=== PATIENT | female | born 1970 | race Caucasian/White ===

== ENCOUNTER → 2018-03-15 11:26 | Outpatient (CLI) | payer MEDICAID, SELFPAY | PROVIDERS: PCP Physician Assistant; Visit Provider Physician Assistant | DX: R19.4 Change in bowel habit (principal); L29.0 Pruritus ani | CPT/HCPCS: 87045; 87177 ==

== ENCOUNTER → 2018-07-06 10:40 | Outpatient (CLI) | payer MEDICAID, SELFPAY | PROVIDERS: PCP Physician Assistant; Visit Provider Orthopaedic Surgery Adult Reconstructive Orthopaedic Surgery | DX: M25.511 Pain in right shoulder (principal) ==

== ENCOUNTER 2020-01-11 14:35 | Emergency (ER) | payer MEDICAID, SELFPAY ==
[2020-01-11 15:02] VITALS: BP 128/70; PULSE 71; RESP 21; TEMP 36.8; O2SAT 98; BMI 34.2
--- NOTE | 2020-01-11 15:16 | HMH.EDUTC ---
[facility] [place] Impression: Folliculitis Disposition: Home, Self-Care Condition on Discharge: Good Instructions: DI for Folliculitis, Folliculitis Additional Instructions: Take the medications as directed. Follow up with your primary care doctor. GO TO THE ER FOR ANY WORSENING SYMPTOMS OR CONCERNS Prescriptions: Mupirocin [Bactroban 2% Ointment 22gm tube] 1 applicatio TP TID 7 Days #1 tube [facility]: [id number] cephALEXin [Keflex 500mg Cap] 500 mg PO Q6H 10 Days #40 cap Transmission Status: [id number] Referrals: Adam Bocanegra [Primary Care Provider] - Time of Disposition: 15:23 Medical Decision Making - Medical Records Medical records reviewed: No: I reviewed the patient's medical records. - Peter Inquiry Pt receiving controlled substance: No Vital Signs: 01/11/20 15:02 Temperature 98.2 F Temperature Source Oral Pulse Rate [Right Brachial] 71 Respiratory Rate 21 Blood Pressure [Right Arm] 128/70 Blood Pressure Mean [Right Arm] 89 Blood Pressure Source [Right Arm] Automatic Cuff Blood Pressure Position [Right Arm] Sitting 02 Sat by Pulse Oximetry 98 Oxygen Delivery Method Room Air [facility] [place] - General Stated complaint: rash on stomach Time Seen by Provider: 01/11/20 15:16 Mode of Arrival: Ambulatory Source of Information: Patient Limitations: No Limitations Description of Symptoms (Recalled from Triage Doc. by RN): PATIENT C/O RASH TO ABD AND UNDER RIGHT BREAST X 4 DAYS HEENT Symptoms (Recalled from RN notes): No Resp Symptoms (Recalled from RN notes): No Skin Symptoms (Recalled from RN notes): Yes MS Symptoms (Recalled from RN notes): No Functional Status (Recalled from RN notes): WNL - History of Present Illness Provider Complaint: She c/o having a rash on her abdomen that goes up to beneath her right breast. She denies feeling bad. She denies any fever or chills. - Related Data Home Medications Medication Instructions Recorded Confirmed Cetirizine HCl [Zyrtec] 10 mg PO DAILY 01/11/20 01/11/20 Citalopram Hydrobromide [Celexa] 20 mg PO BID 01/11/20 01/11/20 Metoprolol Succinate [Metoprolol 25 mg PO DAILY 01/11/20 01/11/20 Succinate 25mg Tablet*] Pantoprazole Sodium [Protonix 40mg 40 mg PO HS 01/11/20 01/11/20 tablet] Previous Rx's Medication Instructions Recorded Mupirocin [Bactroban 2% Ointment 1 applicatio TP TID 7 Days #1 tube 01/11/20 22gm tube] cephALEXin [Keflex 500mg Cap] 500 mg PO Q6H 10 Days #40 cap 01/11/20 Allergies Allergy/AdvReac Type Severity Reaction Status Date / Time No Known Allergies Allergy Verified 01/11/20 15:11 - Worker's Comp Is this a Worker's Comp case?: No [facility] [place] History - Hepatitis A Screen Drug use history?: No High risk sexual behaviors?: No History of sexually transmitted infection?: No Currently employed?: No Childcare worker?: No Do you have indoor plumbing?: Yes Do you have electricity?: Yes Attestation statement:: This patient has been screened for Hepatitis A risk factors. I have reviewed the patient's past medical history: Yes - Social History Alcohol Intake: never Occupational Status: other ROS Obtained: Yes All systems reviewed & no additional complaints - Constitutional Constitutional: Denies chills, Denies fever(s) - Eyes Eyes: Denies eye discharge - ENT Ears, Nose, Mouth, and Throat: Denies dizziness, Denies otalgia, Denies sore throat - Respiratory Respiratory: No chest congestion, No cough, No dyspnea, No wheezing - Musculoskeletal Musculoskeletal: Denies joint pain - Integumentary/Breasts Skin/Breast: Reports as per HPI Physical Exam - General General appearance: alert, in no apparent distress - Head Head exam: atraumatic, normocephalic, normal inspection - Eye Eye exam: Present: normal appearance, PERRL, EOMI - ENT ENT exam: Present: normal exam, normal oropharynx, mucous memb
[2020-01-11 15:32] VITALS: BP 128/70; PULSE 71; RESP 21; TEMP 36.8; O2SAT 98
== END 2020-01-11 15:33 | disposition home or self-care (01) ==
PROVIDERS: Emergency Provider Nurse Practitioner Family; PCP Family Medicine
DX: L73.9 Follicular disorder, unspecified (principal)
CPT/HCPCS: 99201

== ENCOUNTER 2020-12-09 17:10 | Emergency (ER) | payer MEDICAID, SELFPAY ==
[2020-12-09 17:10] VITALS: BP 117/77; PULSE 89; RESP 18; TEMP 37.7; O2SAT 97; BMI 34.2
[2020-12-09 17:33] VITALS: BP 109/62; PULSE 90; RESP 19; O2SAT 93
--- NOTE | 2020-12-09 17:36 | XR_ITS ---
PROCEDURE INFORMATION: Exam: XR Chest Exam date and time: 12/09/2020 5:36 PM Age: 50 years old Clinical indication: Condition or disease; Other: Positive for covid 19; Prior surgery; Surgery date: 6+ months; Surgery type: Diagnostic heart cath; Patient HX: Covid positive. ; Additional info: +covid TECHNIQUE: Imaging protocol: XR of the chest. Views: 2 views. Total images: 2 COMPARISON: No relevant prior studies available. FINDINGS: Lungs: Low lung volumes. Pulmonary vasculature grossly normal. Mild alveolar densities in the central right base and right perihilar region consistent with pneumonia or atelectasis. Pleural spaces: No pleural effusion. No pneumothorax. Heart/Mediastinum: Heart size normal. No tracheal/mediastinal shift. Bones/joints: No acute osseous abnormalities are identified. IMPRESSION: Pneumonia or atelectasis in the right basilar/perihilar distributions.
[2020-12-09 17:47] LABS: Alanine Aminotransferase 20 U/L (12-78); Albumin/Globulin Ratio 1.2 (1.1-1.8); Alkaline Phosphatase 70 U/L (38-126); Anion Gap 14.5 mEq/L (5-15); Aspartate Amino Transferase 29 U/L (14-36); Bilirubin,Total 0.3 mg/dl (0.2-1.3); Blood Urea Nitrogen 6 mg/dl (7-17); Calcium 8.2 mg/dl (8.4-10.2); Carbon Dioxide 25 mmol/L (22.0-30.0); Chloride 108 mmol/L (98-107); Creatinine Clearance Estimated 104 mL/min (50-200); Estimated Glomerular Filt Rate 76 ml/min (>60); GFR (African American) 92 ML/MIN (>60); Globulin 3.4 g/dL (1.3-3.2); Glucose 105 mg/dl (74-100); Potassium 3.5 mmoL/L (3.5-5.1); Sodium 144 mmol/L (136-145); Total Protein,Serum 7.4 g/dl (6.3-8.2)
[2020-12-09 17:56] LABS: Basophils % 0.1 % (0.1-2.0); Eosinophils % 0.3 % (0.1-12.0); Hematocrit 38.4 % (37.0-47.0); Hemoglobin 12.5 g/dL (12.2-16.2); Lymphocytes # 0.6 K/mm3 (0.7-4.5); Lymphocytes % 13.4 % (10-50); Mean Corpuscular HGB Conc 32.5 g/dL (31.8-35.4); Mean Corpuscular Hemoglobin 27.8 pg (27.0-31.2); Mean Corpuscular Volume 85.5 fl (81-99); Mean Platelet Volume 7.8 fl (7.4-10.4); Monocytes # 0.2 K/mm3 (0.1-1.0); Monocytes % 5.1 % (1.7-9.3); Neutrophils # 3.6 K/mm3 (1.8-7.8); Neutrophils % 81.2 % (37.0-80.0); Platelet Count 273 K/mm3 (142-424); Red Blood Count 4.49 M/mm3 (4.20-5.40); Red Cell Distribution Width 14.8 % (11.5-17.5); White Blood Count 4.4 K/mm3 (4.8-10.8)
[2020-12-09 18:00] VITALS: BP 120/102; PULSE 80; RESP 12; O2SAT 91
--- NOTE | 2020-12-09 19:17 | HMH.EDGENADL ---
ED Disposition Clinical Impression: COVID-19 virus infection Disposition: Home, Self-Care Condition on Discharge: Good Instructions: DI for COVID-19 (Suspected or Confirmed ) Additional Instructions: Zofran as needed for nausea. Drink plenty of fluids. Tylenol or ibuprofen for fever or pain. Outpatient infusion of monoclonal antibodies has been ordered. You will receive a phone call to schedule. Return to the emergency department if severe shortness of breath, intractable vomiting, severe weakness. Referrals: Aidee Polo APRN [Primary Care Provider] - - Critical Care Critical Care Time: No Attestation: On 12/09/20, the high probability of a clinically significant, sudden or life threatening deterioration of the following system(s) required my full and direct attention, intervention and personal management. The time I documented below is in addition to time spent performing reported procedures but includes the following listed in this critical care notation. Medical Decision Making - Peter Inquiry Pt receiving controlled substance: Yes Peter was queried for this patient: No Reason not queried -: Peter login issues Risks and benefits of using a controlled substance: were discussed with pt by me Vital Signs: 12/09/20 17:10 12/09/20 17:33 12/09/20 18:00 Temperature 99.9 F H Temperature Source Oral Pulse Rate 90 80 Pulse Rate [Right] 89 Respiratory Rate 18 19 12 Blood Pressure 109/62 L 120/102 H Blood Pressure [Right Arm] 117/77 Blood Pressure Mean [Right Arm] 90 02 Sat by Pulse Oximetry 97 93 L 91 L Oxygen Delivery Method Room Air - Lab Data Lab Results 12/09/20 17:25: WBC 4.4 L, RBC 4.49, Hgb 12.5, Hct 38.4, MCV 85.5, MCH 27.8, MCHC 32.5, RDW 14.8, Plt Count 273, MPV 7.8, Neut % (Auto) 81.2 H, Lymph % (Auto) 13.4, Towner % (Auto) 5.1, Eos % (Auto) 0.3, Baso % (Auto) 0.1, Neut # (Auto) 3.6, Lymph # (Auto) 0.6 L, Towner # (Auto) 0.2, Eos # (Auto) 0.0, Baso # (Auto) 0.0 12/09/20 17:25: Sodium 144, Potassium 3.5, Chloride 108 H, Carbon Dioxide 25, Anion Gap 14.5, BUN 6 L, Creatinine 0.80, Estimated Creat Clear 104, Estimated GFR 76, Est GFR ( Amer) 92, Glucose 105 H, Calcium 8.2 L, Total Bilirubin 0.3, AST 29, ALT 20, Alkaline Phosphatase 70, Total Protein 7.4, Albumin 4.0, Globulin 3.4 H, Albumin/Globulin Ratio 1.2 Result diagrams: 12/09/20 17:25 12/09/20 17:25 Orders (Tests/Meds): ED MEDICATIONS Discontinued Medications Generic Name Dose Route Start Last Admin Trade Name Freq PRN Reason Stop Dose Admin Alprazolam 0.5 mg 12/09/20 19:33 Alprazolam 0.5mg Tablet PO 12/09/20 19:34 ONCE ONE Ondansetron HCl 4 mg 12/09/20 19:33 Ondansetron 4mg/2ml Vial IV 12/09/20 19:34 ONCE ONE Sodium Chloride 1,000 ml 12/09/20 19:33 Sodium Chloride 0.9% 1000ml Bag IV 12/09/20 19:34 BOLUS ONE General Adult HPI - General Chief complaint: Fever Stated complaint: Covid / fever,weakness Time Seen by Provider: 12/09/20 19:19 Mode of Arrival: Ambulatory Limitations: No Limitations Description of Symptoms (Recalled from ER Triage Doc. by RN): tested + for COVID last monday, c/o fevers, chills & diarrhea. tmax 101.6, last took ibuprofen at 1500 today. denies SOB/CP. - History of Present Illness HPI narrative: She has COVID-19. Developed symptoms 8 days ago and tested positive on that date at another facility. No treatment as of yet. She says that she ate at a [place] restaurant with 2 friends and all 3 of them develop symptoms the next day. She says she is prediabetic. She has anxiety and is requesting medication for anxiety. She currently takes hydroxyzine. She has mild asthma. Denies shortness of breath. Very little cough. She has had some diarrhea. Her main concern is that she may have become dehydrated. She says she is not able to eat and drink enough to produce much urine output. She is not vomiting. She thought she mi
[2020-12-09 21:14] VITALS: BP 106/68; PULSE 75; RESP 16; TEMP 37.1; O2SAT 96
== END 2020-12-09 21:23 | disposition home or self-care (01) ==
PROVIDERS: Emergency Provider Emergency Medicine; PCP Nurse Practitioner Family
DX: U07.1 COVID-19 (principal); R50.9 Fever, unspecified; R53.1 Weakness; F41.9 Anxiety disorder, unspecified
CPT/HCPCS: 71046; 80053; 85025; 96365; 96375; 99283; J2405

== ENCOUNTER 2020-12-10 10:17 | Outpatient (CLI) | payer MEDICAID, SELFPAY ==
[2020-12-10] VITALS (8 sets, daily range): BP systolic 93–105; BP diastolic 54–63; PULSE 64–78; RESP 16–18; TEMP 36.6; O2SAT 94–100; BMI 34.2
== END 2020-12-10 12:57 | disposition home or self-care (01) ==
LOC: INF 10:18
PROVIDERS: PCP Nurse Practitioner Family; Visit Provider Emergency Medicine
DX: U07.1 COVID-19 (principal)
CPT/HCPCS: 96365

== ENCOUNTER 2020-12-11 14:02 | Emergency (ER) | payer MEDICAID, SELFPAY ==
[2020-12-11 14:03] VITALS: BP 119/69; PULSE 79; RESP 16; TEMP 36.8; O2SAT 94; BMI 34.2
--- NOTE | 2020-12-11 14:32 | XR_ITS ---
PROCEDURE: XR CHEST PORTABLE CLINICAL HISTORY: COVID Shortness of air and cough COMPARISON: CR XR CHEST 2V from 12/09/2020 FINDINGS: The cardiomediastinal silhouette and pulmonary vascularity are within normal limits. There are low lung volumes vascular crowding. No definite infiltrate apparent. No effusions. No acute bony abnormalities. IMPRESSION: No acute findings. Dictated by: Julio C Dean MD 12/11/2020 15:00 Julio C Dean MD in [facility] 12/11/2020 15:00
--- NOTE | 2020-12-11 14:46 | PC.NURSE ---
xray in room at this time
--- NOTE | 2020-12-11 14:55 | HMH.EDGENADL ---
ED Disposition Clinical Impression: Anxiety, COVID-19 virus infection Disposition: Home, Self-Care Condition on Discharge: Good Instructions: Anxiety Disorders Additional Instructions: Take medications as directed. Follow-up with PCP on Monday. Return to the emergency department chest pain, shortness of breath, fever. Referrals: Aidee Polo APRN [Primary Care Provider] - Time of Disposition: 15:00 - Critical Care Critical Care Time: No Attestation: On 12/11/20, the high probability of a clinically significant, sudden or life threatening deterioration of the following system(s) required my full and direct attention, intervention and personal management. The time I documented below is in addition to time spent performing reported procedures but includes the following listed in this critical care notation. Medical Decision Making - Medical Records Medical records reviewed: Yes: I reviewed the patient's medical records. - Peter Inquiry Pt receiving controlled substance: No Vital Signs: 12/11/20 14:03 Temperature 98.3 F Temperature Source Oral Pulse Rate [Right] 79 Respiratory Rate 16 Blood Pressure [Right Arm] 119/69 Blood Pressure Mean [Right Arm] 85 Blood Pressure Source [Right Arm] Automatic Cuff 02 Sat by Pulse Oximetry 94 L Oxygen Delivery Method Room Air Orders (Tests/Meds): ORDERS Category Date Time Status CXR --portable [XR chest portable] Stat Exams 12/11/20 14:32 Taken - Radiology Data #1 Image(s): Chest Image Reviewed: Yes I reviewed the patient's radiology image Preliminary Findings: Normal/NAD Medical Decision Narrative: 50yo F evaluated for anxiety. Patient also has known Covid. Vital signs are completely unremarkable. Her physical exam is benign. Patient states the reason for anxiety is that her mother when the patient was very young and she had to go in and out of the hospital several times. Patient is now concerning time that she is sick she may . Discussed patient's current vital signs and her physical exam findings are benign. Chest x-ray is unremarkable. Treated the patient with hydroxyzine and discharged her home. Encouraged her to follow-up with PCP on Monday continue taking medications as directed. General Adult HPI - General Chief complaint: Nausea/Vomiting/Diarrhea Stated complaint: covid +, vomiting, weakness Time Seen by Provider: 12/11/20 14:56 Mode of Arrival: Ambulatory Limitations: No Limitations Description of Symptoms (Recalled from ER Triage Doc. by RN): patient COVID+ 12/03/2020. RegenCOV infusion 12/10/2020. patient states that she has vomited 3 times today and that she is scared because she has covid. - History of Present Illness HPI narrative: 50yo F presents the emergency department secondary to anxiety. Patient has Covid and tested positive last . She developed symptoms last Monday. She denies any fever or shortness of breath. She states she does feels tired. She is eating and drinking. Denies any chest pain. Patient reports she takes Pristiq and hydroxyzine for anxiety. - Related Data Home Medications Medication Instructions Recorded Confirmed Cetirizine HCl [Zyrtec] 10 mg PO DAILY 01/11/20 01/11/20 Citalopram Hydrobromide [Celexa] 20 mg PO BID 01/11/20 01/11/20 Metoprolol Succinate [Metoprolol 25 mg PO DAILY 01/11/20 01/11/20 Succinate 25mg Tablet*] Pantoprazole Sodium [Protonix 40mg 40 mg PO HS 01/11/20 01/11/20 tablet] Previous Rx's Medication Instructions Recorded Mupirocin [Bactroban 2% Ointment 1 applicatio TP TID 7 Days #1 tube 01/11/20 22gm tube] cephALEXin [Keflex 500mg Cap] 500 mg PO Q6H 10 Days #40 cap 01/11/20 Allergies Allergy/AdvReac Type Severity Reaction Status Date / Time No Known Allergies Allergy Verified 01/11/20 15:11 [facility] History - Hepatitis A Screen Drug use history?: No High risk sexual behaviors?: No History of sexually transmitte
[2020-12-11 15:07] VITALS: BP 100/72; PULSE 77; RESP 18; TEMP 36.7; O2SAT 95
== END 2020-12-11 15:09 | disposition home or self-care (01) ==
PROVIDERS: Emergency Provider Family Medicine; PCP Nurse Practitioner Family
DX: U07.1 COVID-19 (principal); F41.9 Anxiety disorder, unspecified
CPT/HCPCS: 71045; 96374; 99282; J2405

== ENCOUNTER → 2022-01-12 08:30 | Outpatient (CLI) | payer MEDICAID, SELFPAY ==
[2022-01-12 18:37] LABS: Basophils # 0.1 K/mm3 (0-0.2); Basophils % 0.8 % (0.1-2.0); Eosinophils # 0.4 K/mm3 (0.0-0.4); Eosinophils % 4.9 % (0.1-12.0); Hematocrit 40.3 % (37.0-47.0); Hemoglobin 12.8 g/dL (12.2-16.2); Lymphocytes # 1.6 K/mm3 (0.7-4.5); Lymphocytes % 23.1 % (10-50); Mean Corpuscular HGB Conc 31.8 g/dL (31.8-35.4); Mean Corpuscular Hemoglobin 27.4 pg (27.0-31.2); Mean Corpuscular Volume 86.3 fl (81-99); Mean Platelet Volume 9.4 fl (7.4-10.4); Monocytes # 0.4 K/mm3 (0.1-1.0); Monocytes % 5.2 % (1.7-9.3); Neutrophils # 4.7 K/mm3 (1.8-7.8); Neutrophils % 66.1 % (37.0-80.0); Platelet Count 425 K/mm3 (142-424); Red Blood Count 4.67 M/mm3 (4.20-5.40); Red Cell Distribution Width 14.4 % (11.5-17.5); White Blood Count 7.1 K/mm3 (4.8-10.8)
[2022-01-12 18:56] LABS: Alanine Aminotransferase 21 U/L (12-78); Albumin/Globulin Ratio 1.4 (1.1-1.8); Alkaline Phosphatase 96 U/L (38-126); Anion Gap 14.2 mEq/L (5-15); Aspartate Amino Transferase 23 U/L (14-36); Bilirubin,Total 0.2 mg/dl (0.2-1.3); Blood Urea Nitrogen 11 mg/dl (7-17); Calcium 8.7 mg/dl (8.4-10.2); Carbon Dioxide 25 mmol/L (22.0-30.0); Chloride 106 mmol/L (98-107); Chol/HDL Ratio 4.5 (1-3.5); Cholesterol 166 mg/dl (140-200); Estimated Glomerular Filt Rate 75 ml/min (>60); GFR (African American) 91 ML/MIN (>60); Globulin 2.9 g/dL (1.3-3.2); Glucose 95 mg/dl (74-100); HDL Cholesterol 37 mg/dl (40-60); Potassium 4.2 mmoL/L (3.5-5.1); Sodium 141 mmol/L (136-145); Total Protein,Serum 6.9 g/dl (6.3-8.2); Triglycerides 136 mg/dl (30-150); VLDL Cholesterol 27 mg/dL (0-40)
[2022-01-12 19:07] LABS: Direct LDL Cholesterol 105.03 mg/dL (100-129)
[2022-01-12 19:09] LABS: 25-OH Vitamin D, Total 37.1 ng/mL (30-100)
[2022-01-12 19:28] LABS: Thyroid Stimulating Hormone 2.06 uIU/mL (0.465-4.68)
[2022-01-12 19:47] LABS: Hemoglobin A1C 5.7 % (4.0-6.0)
== END ==
PROVIDERS: PCP Family Medicine; Visit Provider Family Medicine
DX: I10 Essential (primary) hypertension (principal); R73.03 Prediabetes; E55.9 Vitamin D deficiency, unspecified; E78.5 Hyperlipidemia, unspecified
CPT/HCPCS: 80053; 80061; 82306; 83036; 84443; 85025

== ENCOUNTER → 2022-02-03 15:20 | Outpatient (CLI) | payer MEDICAID, SELFPAY ==
[2022-02-03 21:07] LABS: Basophils # 0.1 K/mm3 (0-0.2); Basophils % 0.6 % (0.1-2.0); Eosinophils # 0.3 K/mm3 (0.0-0.4); Eosinophils % 3.4 % (0.1-12.0); Hematocrit 38.1 % (37.0-47.0); Hemoglobin 12.8 g/dL (12.2-16.2); Lymphocytes # 1.8 K/mm3 (0.7-4.5); Lymphocytes % 21.6 % (10-50); Mean Corpuscular HGB Conc 33.7 g/dL (31.8-35.4); Mean Corpuscular Hemoglobin 28.5 pg (27.0-31.2); Mean Corpuscular Volume 84.5 fl (81-99); Monocytes # 0.5 K/mm3 (0.1-1.0); Monocytes % 5.4 % (1.7-9.3); Neutrophils # 5.7 K/mm3 (1.8-7.8); Neutrophils % 69.1 % (37.0-80.0); Platelet Count 476 K/mm3 (142-424); Red Blood Count 4.51 M/mm3 (4.20-5.40); Red Cell Distribution Width 14.6 % (11.5-17.5); White Blood Count 8.3 K/mm3 (4.8-10.8)
[2022-02-05 08:18] LABS: FSH 5.4 mIU/mL (.)
== END ==
PROVIDERS: PCP Family Medicine; Visit Provider Family Medicine
DX: N95.0 Postmenopausal bleeding (principal); R10.9 Unspecified abdominal pain
CPT/HCPCS: 83001; 85025

== ENCOUNTER → 2022-02-07 08:25 | Outpatient (CLI) | payer MEDICAID, SELFPAY ==
--- NOTE | 2022-02-07 08:30 | US_ITS ---
FINAL REPORT CLINICAL HISTORY: abdominal pain LUQ FINDINGS: Sonographic images of the abdomen were obtained. There is fatty infiltration of the liver. There is an echogenic nonshadowing focus in the gallbladder consistent with a polyp. There is no evidence of biliary ductal dilatation. The common hepatic duct measures 3 mm, which is within normal limits. The pancreas is partially obscured. The spleen size is normal. The right kidney measures 10.2 in length. The left kidney measures 11.4 in length. There is normal renal echogenicity. There is no evidence of hydronephrosis. The aorta has an unremarkable appearance. Limited images of the inferior vena cava are unremarkable. IMPRESSION: Fatty liver. Polyp in the gallbladder. Reviewed, Interpreted and Dictated by Azam Garsia III, MD Transcribed by Kerrie Berman Authenticated and [facility]
== END ==
PROVIDERS: PCP Family Medicine; Visit Provider Family Medicine
DX: R10.9 Unspecified abdominal pain (principal)
CPT/HCPCS: 76700

== ENCOUNTER → 2023-03-02 23:34 | Outpatient (CLI) | payer MEDICAID, SELFPAY ==
[2023-03-02 17:30] LABS: Basophils % 0.4 % (0.1-2.0); Eosinophils # 0.4 K/mm3 (0.0-0.4); Eosinophils % 5.5 % (0.1-12.0); Hematocrit 40.3 % (37.0-47.0); Hemoglobin 13.8 g/dL (12.2-16.2); Lymphocytes # 1.4 K/mm3 (0.7-4.5); Lymphocytes % 21.3 % (10-50); Mean Corpuscular HGB Conc 34.2 g/dL (31.8-35.4); Mean Corpuscular Hemoglobin 29.5 pg (27.0-31.2); Mean Corpuscular Volume 86.3 fl (81-99); Mean Platelet Volume 9.2 fl (7.4-10.4); Monocytes # 0.3 K/mm3 (0.1-1.0); Monocytes % 5.2 % (1.7-9.3); Neutrophils # 4.3 K/mm3 (1.8-7.8); Neutrophils % 67.5 % (37.0-80.0); Platelet Count 368 K/mm3 (142-424); Red Blood Count 4.67 M/mm3 (4.20-5.40); Red Cell Distribution Width 14.6 % (11.5-17.5); White Blood Count 6.4 K/mm3 (4.8-10.8)
[2023-03-02 19:10] LABS: Chloride 106 mmol/L (98-107); Potassium 4.1 mmoL/L (3.5-5.1); Sodium 140 mmol/L (136-145)
[2023-03-02 19:13] LABS: Anion Gap 15.1 mEq/L (5-15); Blood Urea Nitrogen 9 mg/dl (7-17); Carbon Dioxide 23 mmol/L (22.0-30.0); Estimated Glomerular Filt Rate 105 ml/min (>60); GFR (African American) 127 ML/MIN (>60)
[2023-03-02 19:14] LABS: Calcium 8.9 mg/dl (8.4-10.2); Glucose 105 mg/dl (74-100)
[2023-03-02 19:43] LABS: Thyroid Stimulating Hormone 4.49 uIU/mL (0.465-4.68)
[2023-03-02 20:06] LABS: Alanine Aminotransferase 39 U/L (12-78); Albumin Level 4.6 g/dl (3.5-5.0); Albumin/Globulin Ratio 1.6 (1.1-1.8); Aspartate Amino Transferase 36 U/L (14-36); Cholesterol 245 mg/dl (140-200); Globulin 2.9 g/dL (1.3-3.2); Total Protein,Serum 7.5 g/dl (6.3-8.2); Triglycerides 284 mg/dl (30-150); VLDL Cholesterol 57 mg/dL (0-40)
[2023-03-02 20:07] LABS: Chol/HDL Ratio 7.9 (1-3.5); HDL Cholesterol 31 mg/dl (40-60)
[2023-03-02 20:18] LABS: Direct LDL Cholesterol 167.39 mg/dL (100-129)
[2023-03-02 20:42] LABS: Bilirubin,Total 0.6 mg/dl (0.2-1.3)
[2023-03-02 21:43] LABS: Alkaline Phosphatase 105 U/L (38-126)
== END ==
LOC: LAB.DROPOF 23:35
PROVIDERS: PCP Family Medicine; Visit Provider Family Medicine
DX: E03.9 Hypothyroidism, unspecified (principal)
CPT/HCPCS: 80053; 80061; 83036; 84443; 85025

== ENCOUNTER 2023-06-13 20:22 | Outpatient (CLI) | payer MEDICAID, SELFPAY | END 2023-06-13 23:59 | LOC: LAB.DROPOF 20:22 | PROVIDERS: PCP Nurse Practitioner Family; Visit Provider Nurse Practitioner Family | DX: R09.81 Nasal congestion (principal); R06.02 Shortness of breath; R50.9 Fever, unspecified | CPT/HCPCS: 87635 ==

== ENCOUNTER 2023-07-31 11:33 | Outpatient (CLI) | payer MEDICAID, SELFPAY ==
[2023-07-31 16:38] LABS: Basophils % 0.5 % (0.1-2.0); Eosinophils # 0.3 K/mm3 (0.0-0.4); Eosinophils % 3.6 % (0.1-12.0); Hematocrit 40.7 % (37.0-47.0); Hemoglobin 12.9 g/dL (12.2-16.2); Lymphocytes # 2.1 K/mm3 (0.7-4.5); Lymphocytes % 26.3 % (10-50); Mean Corpuscular HGB Conc 31.8 g/dL (31.8-35.4); Mean Corpuscular Hemoglobin 28.5 pg (27.0-31.2); Mean Corpuscular Volume 89.5 fl (81-99); Mean Platelet Volume 9.5 fl (7.4-10.4); Monocytes # 0.5 K/mm3 (0.1-1.0); Monocytes % 5.6 % (1.7-9.3); Neutrophils # 5.2 K/mm3 (1.8-7.8); Platelet Count 377 K/mm3 (142-424); Red Blood Count 4.54 M/mm3 (4.20-5.40); Red Cell Distribution Width 14.8 % (11.5-17.5); White Blood Count 8.2 K/mm3 (4.8-10.8)
[2023-07-31 17:10] LABS: Alanine Aminotransferase 28 U/L (12-78); Albumin Level 4.3 g/dl (3.5-5.0); Albumin/Globulin Ratio 1.4 (1.1-1.8); Alkaline Phosphatase 104 U/L (38-126); Aspartate Amino Transferase 31 U/L (14-36); Bilirubin,Total 0.5 mg/dl (0.2-1.3); Blood Urea Nitrogen 10 mg/dl (7-17); Calcium 9.2 mg/dl (8.4-10.2); Carbon Dioxide 26 mmol/L (22.0-30.0); Chloride 107 mmol/L (98-107); Chol/HDL Ratio 6.1 (1-3.5); Cholesterol 239 mg/dl (140-200); Estimated Glomerular Filt Rate 105 ml/min (>60); GFR (African American) 127 ML/MIN (>60); Glucose 99 mg/dl (74-100); HDL Cholesterol 39 mg/dl (40-60); Sodium 141 mmol/L (136-145); Total Protein,Serum 7.3 g/dl (6.3-8.2); Triglycerides 274 mg/dl (30-150); VLDL Cholesterol 55 mg/dL (0-40)
[2023-07-31 17:22] LABS: Direct LDL Cholesterol 133.28 mg/dL (100-129)
[2023-07-31 17:28] LABS: 25-OH Vitamin D, Total 14.7 ng/mL (30-100)
[2023-07-31 18:01] LABS: Vitamin B12 323 pg/mL (239-931)
[2023-08-01 14:45] LABS: T4 (Thyroxine) 8.6 ug/dl (5.53-11.0)
[2023-08-01 16:49] LABS: Free T4 (Free Thyroxine) 1.24 ng/dl (0.78-2.19)
[2023-08-02 18:25] LABS: Thyroglobulin Level <1.0 IU/mL (0.0-0.9)
== END 2023-07-31 23:59 | disposition home or self-care (01) ==
LOC: LAB.DROPOF 08-01 11:34
PROVIDERS: Family Medicine; PCP Nurse Practitioner Family; Visit Provider Nurse Practitioner Family
DX: E03.9 Hypothyroidism, unspecified (principal); E78.5 Hyperlipidemia, unspecified; E55.9 Vitamin D deficiency, unspecified; Z68.34 Body mass index [BMI] 34.0-34.9, adult
CPT/HCPCS: 80053; 80061; 82306; 82607; 84436; 84439; 84443; 85025; 86800

== ENCOUNTER 2023-10-30 10:58 | Outpatient (CLI) | payer MEDICAID, SELFPAY ==
[2023-10-30 18:33] LABS: Thyroid Stimulating Hormone 6.07 uIU/mL (0.465-4.68)
[2023-10-30 21:12] LABS: 25-OH Vitamin D, Total 57.9 ng/mL (30-100)
== END 2023-10-30 23:59 | disposition home or self-care (01) ==
LOC: LAB.DROPOF 10-31 10:58
PROVIDERS: PCP Family Medicine; Visit Provider Family Medicine
DX: E03.9 Hypothyroidism, unspecified (principal); Z68.35 Body mass index [BMI] 35.0-35.9, adult; E66.9 Obesity, unspecified
CPT/HCPCS: 82306; 84443

== ENCOUNTER 2024-05-19 14:19 | Emergency (ER) | payer MEDICAID, SELFPAY ==
[2024-05-19 15:35] VITALS: BP 137/70; PULSE 84; RESP 19; TEMP 37.2; O2SAT 97; BMI 36.7
--- NOTE | 2024-05-19 15:57 | ED_ITS ---
Discharge Plan Disposition Patient Disposition: Home, Self-Care Condition: Good Prescriptions Prescriptions: New benzonatate 100 mg capsule 100 mg PO TID PRN (Reason: cough) Qty: 30 0RF No Action albuterol sulfate [Ventolin HFA] 90 mcg/actuation HFA aerosol inhaler See Rx Instructions .ROUTE .COMPLEX Qty: 18 3RF Dose Instruction: INHALE 2 PUFFS EVERY 6 HOURS NEEDED FOR SHORTNESS OF BREATH OR WHEEZING Rx Instructions: INHALE 2 PUFFS EVERY 6 HOURS NEEDED FOR SHORTNESS OF BREATH OR WHEEZING ondansetron 4 mg tablet,disintegrating 4 mg PO Q8H PRN (Reason: nausea and vomiting) Qty: 20 0RF diazepam [Valium] 5 mg tablet 5 mg PO ONCE PRN (Reason: take 30 min prior to procedure for anxiety) Qty: 1 0RF azelastine 137 mcg (0.1 %) spray,non-aerosol 2 spray intranasal BID Qty: 30 3RF Rx Instructions: administer into each nostril triamcinolone acetonide 0.5 % cream 1 applic topical BID Qty: 15 1RF nystatin 100,000 unit/gram cream 1 applic topical BID Qty: 30 5RF Premarin 0.625 mg/gram cream 0.625 mg vaginal .every other day Qty: 30 3RF clobetasol 0.05 % ointment 1 applic topical BID Patient Comments: APPLY A THIN FILM TO THE AFFECTED AREA OF SKIN 2 TIMES EACH DAY NEEDED FOR ITCHING hydroxyzine HCl 25 mg tablet 25 mg PO Q6H Patient Comments: TAKE 1 TABLET EVERY 6 HOURS NEEDED methylprednisolone [Medrol (Cosme)] 4 mg tablets,dose pack See Rx Instructions PO PER PKG DIR Qty: 21 0RF Rx Instructions: PO PER PKG DIR mupirocin 2 % ointment 1 applic topical TID Qty: 15 2RF prednisone 50 mg tablet 50 mg PO DAILY Qty: 7 0RF albuterol sulfate 1.25 mg/3 mL solution for nebulization 1.25 mg inhalation QID PRN (Reason: shortness of breath or wheezing) Qty: 75 0RF (DME) blood-glucose meter [Accu-Chek Guide Glucose Meter] Misc See Rx Instructions .Route Qty: 1 0RF Rx Instructions: As directed (DME) lancets [OneTouch Delica Plus Lancet] 33 gauge misc See Rx Instructions .Route Qty: 100 2RF Rx Instructions: test QD prn (DME) OneTouch Ultra Test Strip See Rx Instructions .ROUTE .COMPLEX Qty: 100 3RF Dose Instruction: USE TO CHECK BLOOD SUGAR 1 TIME EACH DAY Rx Instructions: USE TO CHECK BLOOD SUGAR 1 TIME EACH DAY cetirizine 10 mg tablet See Rx Instructions .ROUTE .COMPLEX Qty: 30 3RF Dose Instruction: TAKE 1 TABLET 1 TIME EACH DAY Rx Instructions: TAKE 1 TABLET 1 TIME EACH DAY ketoconazole 2 % cream 1 applic topical BID 30 Days Qty: 30 1RF desvenlafaxine succinate 100 mg tablet extended release 24 hr 100 mg PO DAILY Qty: 90 1RF pantoprazole 40 mg tablet,delayed release (DR/EC) See Rx Instructions .ROUTE .COMPLEX Qty: 90 1RF Dose Instruction: TAKE 1 TABLET 1 TIME EACH DAY Rx Instructions: TAKE 1 TABLET 1 TIME EACH DAY aspirin 81 mg tablet,delayed release (DR/EC) See Rx Instructions .ROUTE .COMPLEX Qty: 90 1RF Dose Instruction: TAKE 1 TABLET 1 TIME EACH DAY Rx Instructions: TAKE 1 TABLET 1 TIME EACH DAY metoprolol succinate 50 mg tablet extended release 24 hr See Rx Instructions .ROUTE .COMPLEX Qty: 180 1RF Dose Instruction: TAKE 1 TABLET 2 TIMES EACH DAY Rx Instructions: TAKE 1 TABLET 2 TIMES EACH DAY metoclopramide HCl 10 mg tablet See Rx Instructions .ROUTE .COMPLEX Qty: 60 1RF Dose Instruction: TAKE 1 TABLET EVERY 6 HOURS NEEDED FOR NAUSEA AND VOMITING Rx Instructions: TAKE 1 TABLET EVERY 6 HOURS NEEDED FOR NAUSEA AND VOMITING levothyroxine [Synthroid] 25 mcg tablet 25 mcg PO DAILY 30 Days Qty: 45 3RF Rx Instructions: (2) Monday and , 1 tablet 5 days a week cholecalciferol (vitamin D3) 125 mcg (5,000 unit) capsule See Rx Instructions .ROUTE .COMPLEX Qty: 60 4RF Dose Instruction: TAKE 2 CAPSULES 1 TIME EACH DAY Rx Instructions: TAKE 2 CAPSULES 1 TIME EACH DAY amoxicillin 500 mg tablet 500 mg PO TID Qty: 30 0RF Referrals Follow up/Referrals: Jose Bowman MD [Primary Care Provider] - See instructions Activity Restrictions/Add. Instructions Additional Instructions/Restrictions: * Too late to start Tamiflu. Most effective when started within 48 hours of symptoms onset * Lots of rest * Increase Fluids water, Gatorade, powerade, pedialyte,if infant/toddler/child * Alternate Tylenol and / or ibuprofen as discussed for fever, aches, chills Follow up IMMEDIATELY with your family doctor for new or worsening Symptoms OR no noticeable improvement over the next 48-72 hours, 911 for difficulty or breathing * You or your child area contagious until no fever, aches, chills for 24 hours with medication for symptoms * Help Prevent the spread of influenza: * ?Wash your hands often. Use soap and water. Wash your hands after you use the bathroom, change a child's diapers, or sneeze. Wash your hands before you prepare or eat food. Use gel hand cleanser that has 60% alcohol, when soap and water are not available. Do not touch your eyes, nose, or mouth unless you have washed your hands first. * Cover your mouth when you sneeze or cough. Cough into a tissue or the bend of your arm. If you use a tissue, throw it away immediately and wash your hands. * Clean shared items with a germ-killing building cleaner. Clean table surfaces, doorknobs, and light switches. Do not share towels, silverware, and dishes with people who are sick. Wash bed sheets, towels, silverware, and dishes with soap and water. * Wear a mask over your mouth and nose if you are sick. The face mask may help protect others from becoming infected with the flu. Wear the mask when in common areas of your home or if you seek care with a healthcare provider. * Stay away from others if you are sick. Stay at home until 24 hours after your fever and symptoms are gone. ? Clinical Impressions Clinical Impression: Influenza Instructions Patient Instructions: DI for Influenza -- Adult, Influenza Print Language Print Language: Belarusian Discharge ED Provider: Chelsi Lee [facility] [place] General Stated complaint: cough, fever, headache Mode of Arrival: Ambulatory Source of Information: Patient Limitations: No Limitations Time Seen by Provider: 05/19/24 15:57 Description of Symptoms (Recalled from Triage Doc. by RN): PATIENT C/O COUGH, FEVER AND BODY ACHES, RECENTLY EXPOSED TO FLU HEENT Symptoms (Recalled from RN notes): No Resp Symptoms (Recalled from RN notes): Yes Skin Symptoms (Recalled from RN notes): No MS Symptoms (Recalled from RN notes): No Functional Status (Recalled from RN notes): WNL History of Present Illness Provider Complaint: Pt States that she was exposed to the flu last week and started having symptoms around Mon or States that she is having fever, chills and body aches came in to see if there was something she could get for the cough Related Data Home Medications ?Medication ?Instructions ?Recorded ?Confirmed clobetasol 0.05 % topical ointment 1 applic topical BID 11/27/23 04/05/24 hydroxyzine HCl 25 mg tablet 25 mg PO Q6H 12/11/23 04/05/24 Previous Rx's ?Medication ?Instructions ?Recorded triamcinolone acetonide 0.5 % 1 applic topical BID #15 grams 01/04/22 topical cream blood-glucose meter (Accu-Chek #1 ea 01/14/22 Guide Glucose Meter) lancets 33 gauge (OneTouch Delica #100 ea 01/14/22 Plus Lancet) blood sugar diagnostic (OneTouch #100 strips 07/20/22 Ultra Test strips) nystatin 100,000 unit/gram topical 1 applic topical BID #30 grams 10/31/22 cream cetirizine 10 mg tablet See Rx Instructions .Route 04/20/23 .COMPLEX #30 tabs ketoconazole 2 % topical cream 1 applic topical BID rash 30 days 07/31/23 #30 grams conjugated estrogens 0.625 mg/gram 0.625 mg vaginal .every other day 08/02/23 vaginal cream (Premarin) #30 grams albuterol sulfate 90 mcg/actuation See Rx Instructions .Route 09/12/23 aerosol inhaler (Ventolin HFA) .COMPLEX #18 grams ondansetron 4 mg disintegrating 4 mg PO Q8H PRN nausea and 09/12/23 tablet vomiting #20 tabs desvenlafaxine succinate 100 mg 100 mg PO DAILY #90 tabs 12/08/23 tablet,extended release 24 hr methylprednisolone 4 mg tablets in See Rx Instructions PO PER PKG DIR 12/11/23 a dose pack (Medrol (Cosme)) #21 tabs mupirocin 2 % topical ointment 1 applic topical TID #15 grams 12/11/23 diazepam 5 mg tablet (Valium) 5 mg PO ONCE PRN take 30 min prior 01/16/24 to procedure for anxiety #1 tab azelastine 137 mcg (0.1 %) nasal 2 spray intranasal BID #30 mL 01/17/24 spray aspirin 81 mg tablet,delayed See Rx Instructions .Route 02/08/24 release .COMPLEX #90 tabs metoprolol succinate 50 mg See Rx Instructions .Route 02/08/24 tablet,extended release 24 hr .COMPLEX #180 tabs pantoprazole 40 mg tablet,delayed See Rx Instructions .Route 02/08/24 release .COMPLEX #90 tabs levothyroxine 25 mcg tablet 25 mcg PO DAILY 30 days #45 tabs 03/11/24 (Synthroid) metoclopramide HCl 10 mg tablet See Rx Instructions .Route 03/11/24 .COMPLEX #60 tabs cholecalciferol (vitamin D3) 125 See Rx Instructions .Route 04/04/24 mcg (5,000 unit) capsule .COMPLEX #60 caps albuterol sulfate 1.25 mg/3 mL 1.25 mg (3 mL) inhalation QID PRN 04/05/24 solution for nebulization shortness of breath or wheezing #75 mL prednisone 50 mg tablet 50 mg PO DAILY #7 tabs 04/05/24 amoxicillin 500 mg tablet 500 mg PO TID #30 tabs 04/12/24 benzonatate 100 mg capsule 100 mg PO TID PRN cough #30 caps 05/19/24 Allergies Allergy/AdvReac Type Severity Reaction Status Date / Time No Known Allergies Allergy Verified 04/05/24 13:36 Worker's Comp Is this a Worker's Comp case?: No [facility] Disclaimer: The information contained in this section may have been updated after the patient was seen, as this information can be updated by other users. Medical History Asymmetrical hearing loss Left-sided sensorineural hearing loss Right serous otitis media Impacted cerumen of right ear Hearing difficulty of both ears Otalgia Ear drainage Hypothyroidism Depression Hyperlipidemia Hypertension Surgical History History of dilatation and curettage History of dental surgery Hx of cardiac cath Family History Father Heart attack Social History Smoking Status: Former smoker smoking status stop date: 04/17/2011 alcohol intake: never substance use type: denies use current occupational status: disabled Travel in the last 8 weeks: None housing: apartment Have you lived/traveled outside [place] in past 30 days?: No Contact w/someone who lives/traveled outside US past 30 days?: No Exposure to someone with infectious disease in past 14 days?: No Do you have a fever (greater than 100.4 F or 38 C)?: No Have you tested positive for COVID-19: No Exposed to someone with COVID-19 in past 14 days?: No Do you have a sore throat?: No Do you have a cough?: No Do you have any weakness?: No Do you have any diarrhea?: No Are you experiencing any unusual bleeding?: No Do you have any muscle aches/pain?: No Do you have any abdominal pain?: No Are you experiencing loss of taste or smell?: No ROS Obtained: Yes All systems reviewed & no additional complaints except as documented and Yes Systems reviewed as appropriate & no additional complaints except as documented Constitutional Constitutional: Reports system reviewed and no additional complaints, except as documented, Reports as per HPI, Reports body ache, Reports chills and Reports fever(s) ENT Ears, Nose, Mouth, and Throat: Reports system reviewed and no additional complaints, except as documented and Reports as per HPI Cardiovascular Cardiovascular: Reports system reviewed and no additional complaints, except as documented and Reports as per HPI Respiratory Respiratory: Reports system reviewed and no additional complaints, except as documented, Reports as per HPI, Denies shortness of breath, Denies chest congestion and Reports cough Gastrointestinal Gastrointestingal: Reports system reviewed and no additional complaints, except as documented and as per HPI Physical Exam General General appearance: alert and in no apparent distress ENT ENT exam: Present normal exam, normal oropharynx, mucous membranes moist and TM's normal bilaterally Respiratory Respiratory exam: Present normal lung sounds bilaterally; Absent respiratory distress or wheezes Cardiovascular Cardiovascular exam: Present regular rate, normal rhythm and normal heart sounds Abdominal Exam Abdominal exam: Present soft and normal bowel sounds; Absent distention or tenderness Neurological Exam Neurological exam: Present alert, oriented X3 and normal gait Medical Decision Making Medical Records Screening: Per USPSTF and CDC recommendations, given the prevalence of disease in our region, it is our hospital?s policy to screen for HIV and viral Hepatitis for all patients aged 18 and over and those with ongoing risk factors. Peter Inquiry Pt receiving controlled substance: No Peter was queried for this patient: No Vital Signs: 05/19/24 15:35 Temperature 98.9 F Temperature Source Oral Pulse Rate [Left Brachial] 84 Respiratory Rate 19 Blood Pressure [Left Arm] 137/70 Blood Pressure Mean [Left Arm] 92 Blood Pressure Source [Left Arm] Automatic Cuff Blood Pressure Position [Left Arm] Sitting 02 Sat by Pulse Oximetry 97 Oxygen Delivery Method Room Air Lab Data Lab results reviewed: Yes I reviewed the patient's lab results.
[2024-05-19 16:00] VITALS: BP 131/87; PULSE 98; RESP 17; TEMP 37.1; O2SAT 96
[2024-05-19 16:00] LABS: UTC Influenza A Antigen Positive (Negative); UTC Influenza B Antigen Negative (Negative)
== END 2024-05-19 16:04 | disposition home or self-care (01) ==
PROVIDERS: Emergency Provider Nurse Practitioner; PCP Family Medicine
DX: J10.1 Influenza due to other identified influenza virus with other respiratory manifestations (principal)
CPT/HCPCS: 87804; 99213; G0381

== ENCOUNTER 2024-06-06 11:00 | Outpatient (CLI) | payer MEDICAID, SELFPAY ==
[2024-06-06 16:51] LABS: Basophils % 0.5 % (0.1-2.0); Eosinophils # 0.3 K/mm3 (0.0-0.4); Eosinophils % 3.3 % (0.1-12.0); Hematocrit 40.1 % (37.0-47.0); Lymphocytes # 2.1 K/mm3 (0.7-4.5); Lymphocytes % 27.7 % (10-50); Mean Corpuscular HGB Conc 32.4 g/dL (31.8-35.4); Mean Corpuscular Volume 86.4 fl (81-99); Mean Platelet Volume 10.6 fl (7.4-10.4); Monocytes # 0.7 K/mm3 (0.1-1.0); Monocytes % 8.8 % (1.7-9.3); Neutrophils # 4.4 K/mm3 (1.8-7.8); Neutrophils % 59.4 % (37.0-80.0); Platelet Count 372 K/mm3 (142-424); Red Blood Count 4.64 M/mm3 (4.20-5.40); Red Cell Distribution Width 14.9 % (11.5-17.5); White Blood Count 7.5 K/mm3 (4.8-10.8)
[2024-06-06 17:50] LABS: Hemoglobin A1C 6.1 % (4.0-6.0)
[2024-06-06 18:04] LABS: Albumin Level 4.8 g/dl (3.5-5.0); Chloride 101 mmol/L (98-107); Potassium 4.3 mmoL/L (3.5-5.1); Sodium 139 mmol/L (136-145)
[2024-06-06 18:06] LABS: Blood Urea Nitrogen 12 mg/dl (7-17); Estimated Glomerular Filt Rate 87 ml/min (>60); GFR (African American) 106 ML/MIN (>60)
[2024-06-06 18:07] LABS: Alanine Aminotransferase 42 U/L (12-78); Albumin/Globulin Ratio 1.6 (1.1-1.8); Alkaline Phosphatase 103 U/L (38-126); Anion Gap 14.3 mEq/L (5-15); Aspartate Amino Transferase 41 U/L (14-36); Bilirubin,Total 0.7 mg/dl (0.2-1.3); Calcium 9.8 mg/dl (8.4-10.2); Carbon Dioxide 28 mmol/L (22.0-30.0); Cholesterol 233 mg/dl (140-200); Glucose 106 mg/dl (74-100); Magnesium 1.9 mg/dl (1.6-2.3); Total Protein,Serum 7.8 g/dl (6.3-8.2)
[2024-06-06 18:08] LABS: HDL Cholesterol 29 mg/dl (40-60)
[2024-06-06 18:21] LABS: Direct LDL Cholesterol 112.35 mg/dL (100-129)
[2024-06-06 18:32] LABS: 25-OH Vitamin D, Total 58.1 ng/mL (30-100)
[2024-06-06 18:34] LABS: Triglycerides 644 mg/dl (30-150)
[2024-06-06 18:39] LABS: Thyroid Stimulating Hormone 7.03 uIU/mL (0.465-4.68)
[2024-06-06 18:49] LABS: HIV Combo NEGATIVE (Negative)
[2024-06-06 18:58] LABS: Hepatitis C Ab Qual. W/ RFX NEGATIVE (Negative)
== END 2024-06-06 23:59 | disposition home or self-care (01) ==
LOC: LAB.DROPOF 06-07 10:54
PROVIDERS: PCP Family Medicine; Visit Provider Family Medicine
DX: R60.9 Edema, unspecified (principal); E66.9 Obesity, unspecified; Z68.37 Body mass index [BMI] 37.0-37.9, adult
CPT/HCPCS: 80053; 80061; 82306; 83036; 83735; 84436; 84443; 85025; 86803; 87389

== ENCOUNTER 2024-07-24 12:40 | Outpatient (CLI) | payer MEDICAID, SELFPAY ==
--- NOTE | 2024-07-24 13:00 | MM_ITS ---
PROCEDURE INFORMATION: Exam: MG Bilateral Screening 3D Mammography Exam date and time: 07/24/2024 1:11 PM Age: 53 years old Clinical indication: Screening examination. TECHNIQUE: Imaging protocol: Bilateral Screening tomosynthesis and 2D mammography including computer-aided detection (CAD) when performed. COMPARISON: 1. MG SCREEN MAMMO W CAD BILAT 05/04/2021 2:01 PM 2. MG MAMMO SCREENING DIGITAL BILAT 09/08/2015 2:12 PM FINDINGS: MAMMOGRAPHY: Breast composition: There are scattered areas of fibroglandular density. Mass: None. Architectural distortion: None. Calcifications: No suspicious calcifications. Asymmetric density: None. Skin thickening: None. Axillary adenopathy: None. IMPRESSION: No mammographic evidence of malignancy. Annual screening is recommended unless otherwise clinically indicated. ASSESSMENT: BI-RADS Category 1: Negative.
== END 2024-07-24 23:59 | disposition home or self-care (01) ==
LOC: RAD 12:41
PROVIDERS: PCP Family Medicine; Visit Provider Family Medicine
DX: Z12.31 Encounter for screening mammogram for malignant neoplasm of breast (principal)
CPT/HCPCS: 77063; 77067

== ENCOUNTER 2024-10-28 06:44 | Day surgery (SDC) | payer MEDICAID, SELFPAY ==
[2024-10-24 16:14] VITALS: BMI 29.7
[2024-10-28 06:58] VITALS: BMI 29.7
[2024-10-28 07:01] VITALS: BP 135/69; PULSE 65; RESP 18; TEMP 36.2; O2SAT 98
[2024-10-28] MEDS: LACTATED RINGERS 1000ML 1,000 ML 50 ML IV (07:13)
--- NOTE | 2024-10-28 07:26 | EXP.HP ---
History of Present Illness *Admission Date: 10/28/24 *Reason for visit:: Positive Cologuard *History of present illness: Mrs. Schmid is a 54-year-old female who is here for screening colonoscopy secondary to a positive Cologuard. The patient has had some long-term diarrhea predominant IBS with sometimes alternating constipation. The examination is deemed medically necessary for screening colonoscopy. The patient has been seen, interviewed and examined prior to the procedure by both myself and the anesthesia provider. [facility] Disclaimer: The information contained in this section may have been updated after the patient was seen, as this information can be updated by other users. Medical History (Updated 10/28/24 @ 07:55 by Buzz Norris II, MD) Unspecified asthma, uncomplicated Acid reflux disease with ulcer Asymmetrical hearing loss Left-sided sensorineural hearing loss Right serous otitis media Impacted cerumen of right ear Hearing difficulty of both ears Otalgia Ear drainage Hypothyroidism Depression Hyperlipidemia Hypertension Surgical History History of dilatation and curettage History of dental surgery Hx of cardiac cath Family History Father Heart attack Social History Smoking Status: Former smoker smoking status stop date: 04/17/2011 alcohol intake: never substance use type: denies use current occupational status: disabled Travel in the last 8 weeks?: None housing: apartment Have you lived/traveled outside US in past 30 days?: No Contact w/someone who lives/traveled outside US past 30 days?: No Exposure to someone with infectious disease in past 14 days?: No Do you have a fever (greater than 100.4 F or 38 C)?: No Have you tested positive for COVID-19?: No Exposed to someone with COVID-19 in past 14 days?: No Do you have a sore throat?: No Do you have a cough?: No Do you have any weakness?: No Do you have any diarrhea?: No Are you experiencing any unusual bleeding?: No Do you have any muscle aches/pain?: No Do you have any abdominal pain?: No Are you experiencing loss of taste or smell?: No Other Medical History Have you received the Flu Vaccine for this season: No Have you received the Pneumonia Vaccine: No Review of Systems Review of Systems Review of systems (narrative): Negative *Cardiovascular Comments: Negative *Gastrointestinal Comments: Negative *Genitourinary Comments: Negative *Musculoskeletal Comments: Negative *Neurologic Comments: Negative Meds Home Medications and Allergies Home Medications ?Medication ?Instructions ?Recorded ?Confirmed ?Type triamcinolone acetonide 0.5 % 1 applic topical BID #15 grams 01/04/22 10/28/24 Rx topical cream nystatin 100,000 unit/gram topical 1 applic topical BID #30 grams 10/31/22 10/28/24 Rx cream ketoconazole 2 % topical cream 1 applic topical BID rash 30 days 07/31/23 10/28/24 Rx #30 grams conjugated estrogens 0.625 mg/gram 0.625 mg vaginal .every other day 08/02/23 10/28/24 Rx vaginal cream (Premarin) #30 grams clobetasol 0.05 % topical ointment 1 applic topical BID 11/27/23 10/28/24 History hydroxyzine HCl 25 mg tablet 25 mg PO Q6H 12/11/23 10/28/24 History mupirocin 2 % topical ointment 1 applic topical TID #15 grams 12/11/23 10/28/24 Rx azelastine 137 mcg (0.1 %) nasal 2 spray intranasal BID #30 mL 01/17/24 10/28/24 Rx spray albuterol sulfate 1.25 mg/3 mL 1.25 mg (3 mL) inhalation QID PRN 04/05/24 10/24/24 Rx solution for nebulization shortness of breath or wheezing #75 mL levothyroxine 50 mcg tablet 50 mcg PO DAILY 30 days #30 tabs 06/07/24 10/28/24 Rx desvenlafaxine succinate 100 mg 100 mg PO DAILY #90 tabs 06/10/24 10/28/24 Rx tablet,extended release 24 hr albuterol sulfate 90 mcg/actuation 90 mcg inhalation DAILY 10/24/24 10/24/24 History aerosol inhaler (Ventolin HFA) aspirin 81 mg tablet,delayed 81 mg PO DAILY 10/24/24 10/24/24 History release cetirizine 10 mg tablet 10 mg PO DAILY 10/24/24 10/28/24 History cholecalciferol (vitamin D3) 125 125 mcg PO DAILY 10/24/24 10/28/24 History mcg (5,000 unit) capsule metoclopramide HCl 10 mg tablet 10 mg PO DAILY 10/24/24 10/28/24 History pantoprazole 40 mg tablet,delayed 40 mg PO DAILY 10/24/24 10/28/24 History release propranolol 60 mg capsule,24 80 mg PO DAILY 10/28/24 10/28/24 History hr,extended release New Prescriptions to Start Prescriptions: Allergies Allergy/AdvReac Type Severity Reaction Status Date / Time No Known Allergies Allergy Verified 06/06/24 10:19 Exam Data for Last 24 hours I & O for Last 24 hours: Intake & Output 10/25/24 10/26/24 10/27/24 10/28/24 23:59 23:59 23:59 23:59 Weight 184 lb *Routine HEENT Exam Head: Present normocephalic Eye: Present EOMI and PERRL ENT: Present mucous membranes moist *Routine Neck Exam Neck: Present supple *Routine Respiratory Exam Respiratory: Present CTA bilaterally *Routine Cardiovascular Exam Cardiovascular: Present RRR *Routine Abdominal Exam Abdominal: Present soft and normoactive bowel sounds; Absent tenderness *Routine Rectal Exam Rectal:: deferred *Routine Genitalia Exam Genitalia:: deferred *Routine Extremities Exam Extremities: Absent cyanosis, clubbing or edema *Routine Skin Exam Skin: Present warm; Absent rash *Routine Neurological Exam Neurological: Present alert and oriented X3 Assessment and Plan *Assessment and plan (1) Positive colorectal cancer screening using Cologuard test: Status: Acute Category: Medical Code(s): R19.5 - Other fecal abnormalities Plan A/P: 1. Positive Cologuard is the preprocedural diagnosis. The patient will be anesthetized/sedated using MAC sedation. The patient has been seen and examined. Cardiac and lung assessment prior to the examination is stable. Proceed with planned screening colonoscopy.
--- NOTE | 2024-10-28 07:53 | P.PNANES_ITS ---
[facility] Disclaimer: The information contained in this section may have been updated after the patient was seen, as this information can be updated by other users. Medical History Unspecified asthma, uncomplicated Acid reflux disease with ulcer Asymmetrical hearing loss Left-sided sensorineural hearing loss Right serous otitis media Impacted cerumen of right ear Hearing difficulty of both ears Otalgia Ear drainage Hypothyroidism Depression Hyperlipidemia Hypertension Surgical History History of dilatation and curettage History of dental surgery Hx of cardiac cath Family History Father Heart attack Social History Smoking Status: Former smoker smoking status stop date: 04/17/2011 alcohol intake: never substance use type: denies use current occupational status: disabled Travel in the last 8 weeks?: None housing: apartment Have you lived/traveled outside US in past 30 days?: No Contact w/someone who lives/traveled outside US past 30 days?: No Exposure to someone with infectious disease in past 14 days?: No Do you have a fever (greater than 100.4 F or 38 C)?: No Have you tested positive for COVID-19?: No Exposed to someone with COVID-19 in past 14 days?: No Do you have a sore throat?: No Do you have a cough?: No Do you have any weakness?: No Do you have any diarrhea?: No Are you experiencing any unusual bleeding?: No Do you have any muscle aches/pain?: No Do you have any abdominal pain?: No Are you experiencing loss of taste or smell?: No [facility] Anesthesia Checklist Patient Identification Patient Identification: Arm Band and Verbal (Name & ) Structural Data Admitted From: Home Planned Operative Procedure/s: colonscopy Consent for Planned Operative Procedure(s) Verified: Yes Verified Documents: Surgical Consent and History and Physical NPO Status Verified Time NPO: 00:00 Additional verifications Anesthesia Reactions: No Previous Colonoscopy: Yes Airway Assessment Mallampati Score:: Class II Neurological Assessment Level of Consciousness: Awake, Alert and Appropriate Hx Seizures: No Anesthesia Plan Anesthesia Risk discussed: Yes Anesthesia Plan: Verified ASA Class: II Anesthesia Type: MAC
--- NOTE | 2024-10-28 07:55 | [facility].PROCNOTE ---
[facility] Procedure Note Date: 10/28/24 Time: 08:13 Procedure Note:: Colonoscopy Procedure Report: Colonoscopy with snare cautery, cold snare polypectomy, cold biopsy and Endo Clip placement Endoscopist: Buzz Norris II, MD Referring physician: Jose Bowman MD Date of Procedure: October 28, 2024 Equipment: Olympus 190 variable stiffness pediatric colonoscope Sedation: MAC sedation Indication: Mrs. Schmid is a 54-year-old female who is here for screening colonoscopy secondary to a positive Cologuard test. The patient does have some long-term IBS-D. She does have diarrhea predominance but will sometimes alternate to constipation. She does get some gassiness, bloating and perianal rectal itching. She will sometimes see a spot of blood which she attributes to rawness or hemorrhoids. The patient reports no abdominal pain, weight loss or family history of colon cancer. This is her first colonoscopy. Procedure: Prior to the procedure, a history and physical exam was performed, and patient's medications and allergies were reviewed. The risks, benefits and alternatives of the sedation and procedure were discussed with the patient. All questions were answered and informed consent was obtained. The patient was brought to the procedure room. Patient identification and proposed procedure were verified by the physician and the nurse. The patient was placed in a left lateral decubitus position and the scope was passed under direct vision. Throughout the procedure, the patient's blood pressure, pulse, and oxygen saturations were monitored continuously. The colonoscopy was accomplished without difficulty. The patient tolerated the procedure well. Findings: On digital rectal examination there was normal rectal tone. There were no external hemorrhoids. The colonoscope was introduced through the anal canal to the rectum and advanced to the cecum. The ileocecal valve and appendiceal orifice were identified. The scope was advanced a short distance into the ileum. There was an aphthous (shallow and small) ulceration (singular) in the ileum and cold biopsies were obtained. The scope was then withdrawn into the colon. The cecum, ascending and transverse colon and mucosa were grossly normal. There were very mildly scattered shallow diverticuli throughout the descending and sigmoid colon (LEFT colon). There were 2 polyps (sigmoid x 1 (4 mm) and rectum x 1 (12 mm)). The smaller sigmoid polyp was removed via cold snare polypectomy. The larger rectal polyp was removed via snare cautery. A single Endo Clip was placed over the polypectomy site in the rectum to provide hemostasis. Upon retroflexion within the rectum there were grade 1-2 internal hemorrhoids. The preparation was excellent throughout with [place] Preparation Score of 9. The cecal time was 13 minutes. Impression: 1. Rectal polyp (12 mm) 2. Diminutive sigmoid polyp (4 mm) 3. Mild sigmoid diverticulosis 4. Grade 1-2 internal hemorrhoids Plan: I will follow-up the polyp histology and recommend repeat surveillance colonoscopy again in 3 to 5 years based upon the pathology. I would encourage bulking psyllium fiber supplementation on a maintenance basis.
[2024-10-28 08:17] VITALS: BP 124/55; PULSE 61; RESP 18; TEMP 36.2; O2SAT 97
[2024-10-28 08:27] VITALS: BP 111/74; PULSE 72; RESP 20; O2SAT 98
[2024-10-28 08:37] VITALS: BP 129/79; PULSE 99; RESP 18; O2SAT 97
[2024-10-28 08:47] VITALS: BP 144/75; PULSE 89; RESP 16; TEMP 36.2; O2SAT 98
== END 2024-10-28 08:47 | disposition home or self-care (01) ==
PROVIDERS: PCP Family Medicine; Visit Provider Internal Medicine Gastroenterology
PROC: 0DJD8ZZ Inspection of Lower Intestinal Tract, Via Natural or Artificial Opening Endoscopic (ICD-10-PCS; CPT 45378; principal; 2024-10-28 08:30)
DX: Z12.11 Encounter for screening for malignant neoplasm of colon (principal); D12.5 Benign neoplasm of sigmoid colon; D12.8 Benign neoplasm of rectum; K57.30 Diverticulosis of large intestine without perforation or abscess without bleeding; K64.1 Second degree hemorrhoids; K58.0 Irritable bowel syndrome with diarrhea; K63.3 Ulcer of intestine; J45.909 Unspecified asthma, uncomplicated; E03.9 Hypothyroidism, unspecified; E78.5 Hyperlipidemia, unspecified; I10 Essential (primary) hypertension; K21.9 Gastro-esophageal reflux disease without esophagitis; K22.10 Ulcer of esophagus without bleeding; F32.A Depression, unspecified; Z79.890 Hormone replacement therapy; Z79.82 Long term (current) use of aspirin; Z87.891 Personal history of nicotine dependence; Z79.899 Other long term (current) drug therapy
CPT/HCPCS: 45380; 45385; J2003; J2704; J7120